=== PATIENT | female | born 1945 | race Caucasian/White ===

== ENCOUNTER → 2016-12-29 | Outpatient (CLI) | payer MEDICARE, OTHER ==
[~2016-12-29] MED LIST: ANEXSIA 5/325 M1 TA1 PO; B COMPLEX1 TAB PO; BUSPIRONE HCL10 MG PO; CELEXA10 MG PO; FLEXERIL PO; FLEXERIL10 M1 PO; FLEXERIL10 MG PO; HYDROCODON-ACE1 EAC1 PO; HYDROCODON-ACE1 EAC5 PO; HYDROCODONE-APA1 T54 PO; LEVOXYL50 MC1 PO; LORTAB 5/500 TA1 TA1 PO; LORTAB 5/500 TA1 TA2 PO; MOTION RELIEF25 MG PO; MOTION SICKNESS25 M4 PO; NAPROSYN500 MG PO; NEPHROCAPS CAPSU1 MG PO; NO MEDICATIONS; NORCO 10-325 TA1 TAB PO; NORVASC PO; NUCYNTA50 MG PO; OCUVITE TABLET1 TA1 PO; SKELAXIN PO; SUPER B COMPLEX1 CAP PO; VALIUM10 MG PO; VICODIN 5/1 TAB 5/50 PO; VICODIN 5/500 T1 TAB PO; VIT C; VITAL-D RX TABL1 TAB PO; VITAMIN C500 M1 PO; VITAMIN C500 M6; VITAMIN D350000 UNIT PO; VITAMIN E100 UNIT PO; VOLTAREN50 MG PO; XANAX0.5 MG PO; ZESTRIL40 MG PO; ZOLOFT PO; [UNRECOGNIZED DRUG - OTHER]; [UNRECOGNIZED DRUG - OTHER] PO
--- NOTE | ~2016-12-29 | MY29 ---
[facility] A Service of [facility] RADIOLOGY TEXT RESULTS PATIENT: GARO CHERRY LOCATION: [facility] : 45 UNIT #: [id number] AGE: [address]: Bebeto Ashford MD SEX: F ORDER DR: [id number] [facility] [address] [place], [place] [address] [id number] O MR#: [id number] Acc #: [id number] NAME: GARO CHERRY. : 1945 SEX: F STUDY DATE/TIME: 12/29/2016 9:28 UNIT: [facility] ROOM: STUDY DESCRIPTION: MY KAROL SCREENING W/ CAD BILAT Attending Physician: Bebeto Ashford M.D. Referring Physician: Bebeto Ashford M.D. Ordering Physician: Bebeto Ashford M.D. Primary Care Physician: Bebeto Ashford M.D. MEDICAL IMAGING REPORT This report is preliminary unless electronic signature is present EXAM Digital screening mammogram 12/29/2016. [facility] HISTORY 71-year-old woman positive family history, mother age 55. Annual screening. COMPARISON: Mammograms date to 06/12/2005 with most recent screening comparison 12/24/2015. FINDINGS Digital imaging of each breast was completed utilizing a two-view examination of each breast in craniocaudal and mediolateral-oblique projections. Review and interpretation of digital mammograms include a second review in conjunction with FDA-approved CAD device. There is a normal parenchymal presentation bilaterally consistent with the patient's age. There are no breast masses imaged and no parenchymal asymmetry is visualized. There are no suspicious microcalcifications and I see no focal architectural disturbance. Addendum: Breast parenchyma is fatty replaced. IMPRESSION Negative screening digital mammogram. One-year followup recommended. Patients over the age of 40 are entered into a reminder system with target due date for the next mammogram. A result letter will also be sent to the patient. BIRADS: 1 Negative [facility] A Service [facility] RADIOLOGY TEXT RESULTS PATIENT: GARO CHERRY LOCATION: [facility] : 45 UNIT #: [id number] AGE: [address]: Bebeto Ashford MD SEX: F ORDER DR: Dictated by... Medhat Verdugo M.D. THIS IS AN ELECTRONICALLY VERIFIED REPORT Medhat Verdugo M.D. at 12/29/2016 1:10 PM OLGA LIDIA/mis TD: 12/29/2016 12:50 JOB #: [id number] MEDICAL IMAGING REPORT Page 1 of 1 COPY
== END | disposition home or self-care (01) ==
LOC: CWCC 09:05
DX: Z12.31 Encounter for screening mammogram for malignant neoplasm of breast (principal); Z80.3 Family history of malignant neoplasm of breast
CPT/HCPCS: G0202